=== PATIENT | female | born 1955 | race Caucasian/White ===

== ENCOUNTER 2020-06-02 10:03 | Day surgery (SDC) | payer MEDICARE ==
[~2020-06-02 10:03] MED LIST: BAYER LOW DOSE81 MG; BUSPAR10 M1 PO; CALCIUM/D250 MG PO; CITRACAL + D PO; CRANBERRY500 MG PO; LORTAB 7.5 PO; NO; ZANTAC 150 PO; [UNRECOGNIZED DRUG - SUPPLY] TOP
[2020-06-02 13:06] VITALS: BP 129/64
== END 2020-06-02 13:20 | disposition home or self-care (01) ==
LOC: ENDO 10:03 → ORM 13:00 → ENDO 13:20
PROVIDERS: ATTEND Internal Medicine Gastroenterology
PROC: 0D758ZZ Dilation of Esophagus, Via Natural or Artificial Opening Endoscopic (ICD-10-PCS; principal; 2020-06-02)
PROC: 0DB98ZX Excision of Duodenum, Via Natural or Artificial Opening Endoscopic, Diagnostic (ICD-10-PCS; 2020-06-02)
PROC: 0DB48ZX Excision of Esophagogastric Junction, Via Natural or Artificial Opening Endoscopic, Diagnostic (ICD-10-PCS; 2020-06-02)
PROC: 0DBL8ZX Excision of Transverse Colon, Via Natural or Artificial Opening Endoscopic, Diagnostic (ICD-10-PCS; 2020-06-02)
DX: Z12.11 Encounter for screening for malignant neoplasm of colon (principal); D12.3 Benign neoplasm of transverse colon; K64.8 Other hemorrhoids; K64.4 Residual hemorrhoidal skin tags; K22.2 Esophageal obstruction; K21.00 Gastro-esophageal reflux disease with esophagitis, without bleeding; K29.70 Gastritis, unspecified, without bleeding; Q40.8 Other specified congenital malformations of upper alimentary tract; K31.7 Polyp of stomach and duodenum; K90.41 Non-celiac gluten sensitivity; Z86.010 Personal history of colon polyps; Z20.828 Contact with and (suspected) exposure to other viral communicable diseases

== ENCOUNTER 2022-12-18 22:45 | Emergency (ER) | payer MEDICARE ==
[~2022-12-18] VITALS: Ht 167.6 cm; Wt 59.0 kg
[2022-12-18 23:22] VITALS: BP 123/72
== END 2022-12-18 23:22 | disposition home or self-care (01) ==
LOC: ED 22:45
DX: S50.812A Abrasion of left forearm, initial encounter (principal); K21.9 Gastro-esophageal reflux disease without esophagitis; V48.0XXA Car driver injured in noncollision transport accident in nontraffic accident, initial encounter; Y93.89 Activity, other specified; Y92.008 Other place in unspecified non-institutional (private) residence as the place of occurrence of the external cause